=== PATIENT | female | born 1995 | race Caucasian/White ===

== ENCOUNTER 2025-05-21 19:31 | Emergency (ER) | payer BC, SELFPAY ==
[2025-05-21 19:50] VITALS: BP 132/85; PULSE 82; RESP 16; TEMP 36.2; O2SAT 98; BMI 25.4
--- NOTE | 2025-05-21 20:39 | ED.GENADULT ---
HPI - General Adult General Chief complaint: Unspecified Complaint, Adult Stated complaint: dehydrated Time Seen by Provider: 05/21/25 20:17 History of Present Illness HPI narrative: This 29-year-old female comes in with concern about weight loss and volume depletion in her 3rd . She is 9 weeks gestation currently and has been taking Zofran 8 mg tablets without any relief now. She states that she has lost 10 lb in this . She did go to urgent care earlier today and did receive a L of normal saline intravenously. Labs were done there and these returned with reassuring results. Her sodium and potassium were just slightly low. She arrives here with normal vital signs. Related Data Home Medications ?Medication ?Instructions ?Recorded ?Confirmed ondansetron HCl 8 mg tablet 8 mg PO Q8-12H PRN 05/21/25 05/21/25 Previous Rx's ?Medication ?Instructions ?Recorded prochlorperazine maleate 5 mg 5 mg PO QID PRN #10 tabs 05/21/25 tablet (Compazine) Allergies Allergy/AdvReac Type Severity Reaction Status Date / Time No Known Drug Allergies Allergy Verified 05/21/25 19:57 Review of Systems Status of ROS: Reports: 10 or more systems reviewed and unremarkable except as noted in History and below Narrative: Constitutional: No fevers, no weight gain or loss. Eyes: No discharge. No vision changes. HENT: No congestion, no sore throat, no ear pain. Cardiovascular: No chest pain, no palpitations. Respiratory: No shortness of breath, no wheezes, no cough. Gastrointestinal: No abdominal pain, no diarrhea. Frequent nausea and vomiting symptoms in . Genitourinary: No dysuria, no hematuria. Musculoskeletal: Normal range of motion. Skin: No rashes, no pruritis. Neurological: No dizziness, weakness, sensory change, speech change. Endo/Heme/Allergies: No bruising or bleeding. No polydipsia. Pysch: no suicidality, no anxiety, no insomnia. All other systems reviewed and are negative. PFSH PFSH Social History Smoking Status: Never smoker How often do you have a drink containing alcohol: never AUDIT-C Alcohol total score: 0 Non-prescribed substance use: denies use Exam Narrative: Exam Narrative: Constitutional: Well-developed, well-nourished, no acute distress. HEENT: Normocephalic, atraumatic. Neck: Normal range of motion. Nontender. Supple. Heart: Intact distal pulses. Lungs: No chest discomfort. No wheezes, rhonchi, or rales. Abdomen: Nontender. Back: Normal range of motion. Extremities: Normal range of motion. No injury. Skin: Intact. No rash. Warm. No erythema or pallor. Neurologic: No altered sensation. No weakness. Alert and oriented. Psychiatric: No suicidality. No anxiety or depression. No insomnia. Nursing notes and vitals signs are reviewed. Const: Vital Signs, click to edit/add: Vital Signs - 24 hr 05/21/25 19:50 Temperature 97.1 F L Pulse Rate [Pulse Oximeter] 82 Respiratory Rate 16 Blood Pressure [Ri t Upper Arm] 132/85 Pulse Oximetry 98 Oxygen Delivery Me thod Room Air Course Vital Signs Vital signs: Initial Vital Signs Temperature 97.1 F L 05/21/25 19:50 Temperature Source Temporal Artery Scan 05/21/25 19:50 Pulse Rate 82 05/21/25 19:50 Pulse Rhythm Regular 05/21/25 19:50 Respiratory Rate 16 05/21/25 19:50 Blood Pressure 132/85 05/21/25 19:50 Blood Pressure Mean 100 05/21/25 19:50 Blood Pressure Position Sitting 05/21/25 19:50 Pulse Oximetry 98 05/21/25 19:50 Oxygen Delivery Method Room Air 05/21/25 19:50 Vital Signs Temperature 97.1 F L 05/21/25 19:50 Pulse Rate 82 05/21/25 19:50 Respiratory Rate 16 05/21/25 19:50 Blood Pressure 132/85 05/21/25 19:50 Pulse Oximetry 98 05/21/25 19:50 Oxygen Delivery Method Room Air 05/21/25 19:50 Temperature 97.1 F L 05/21/25 19:50 Pulse Rate 82 05/21/25 19:50 Respiratory Rate 16 05/21/25 19:50 Blood Pressure 132/85 05/21/25 19:50 Pulse Oximetry 98 05/21/25 19:50 Oxygen Delivery Method Room Air 05/21/25 19:50 Medications Administered Medications: Generic Name Dose Route Start Last Admin Trade Name Freq PRN Reason Stop Dose Admin Dextrose/Sodium Chloride 1,000 mls @ 1,000 mls/hr 05/21/25 20:39 10/15/25 20:53 5 % Dextrose/0.45% Sod Chlor IV 05/21/25 21:38 1,000 mls/hr .Q1H ONE Administration Medical Decision Making MDM Narrative Medical decision making narrative: This patient has persistent nausea and vomiting in the 1st trimester of this . She states that she has lost 10 lb. She did go to urgent care today and did receive a L of normal saline intravenously. Labs are acquired at that time and I did review those results which are reassuring. The patient comes here stating that she feels like she is dehydrated. I did establish an IV and ordered a total of 2 L of D5 half-normal saline infused intravenously. She also received Zofran 4 mg. She is okay to be discharged home. I did provide a prescription for Compazine. Discharge Plan Discharge Clinical Impression: Hyperemesis gravidarum Patient Disposition: Home, Self-Care Condition: Stable Additional Instructions: Take frequent sips of fluid bites of food as tolerated. Use Zofran and Compazine as needed and directed. Follow up with MD return if worsening symptoms occur. Prescriptions: New prochlorperazine maleate [Compazine] 5 mg tablet 5 mg PO QID PRNQty: 10 0RF No Action ondansetron HCl 8 mg tablet 8 mg PO Q8-12H PRN Follow Up/Referrals: Provider,Not a Local [Primary Care Provider, Family Practice] Stand Alone Forms: [employer] - [employer] Info Instructions
[2025-05-21] MEDS: 5 % DEXTROSE/0.45% SOD CHLOR 1,000 ML 1000 ML IV ×2 (20:53→22:01)
[2025-05-21] MEDS: ONDANSETRON 2 MG/ML inj 4 MG IVP (22:00)
== END 2025-05-21 23:02 | disposition home or self-care (01) ==
PROVIDERS: Emergency Provider Emergency Medicine Emergency Medical Services
DX: O21.0 Mild hyperemesis gravidarum (principal); Z3A.09 9 weeks gestation of pregnancy
CPT/HCPCS: 96374; 99284; J2405; S5010